=== PATIENT | male | born 1965 | race Caucasian/White ===

== ENCOUNTER 2020-11-10 05:32 | Emergency (ER) | payer OTHER, SELFPAY ==
--- NOTE | 2020-11-10 05:30 | RT.EKG_ITS ---
APPROVED REPORT Exam: Resting ECG Reason for Exam: syncope Patient Location: E HR:74 bpm ECG Measurements Heart Rate 74 AXIS OH 187 P 63 QRSd 91 QRS 67 QT 388 T 47 QTc 431 Conclusion Sinus arrhythmia...V-rate 56- 82, variation>10% Left [place] I have reviewed and interpreted ECG and agree with software generated interpretation.
[2020-11-10 05:37] VITALS: BP 109/64; PULSE 68; RESP 14; TEMP 36.3; O2SAT 98
--- NOTE | 2020-11-10 06:00 | DI.CT_ITS ---
Exam(s) CT HEAD CERVICAL SPINE WO EXAM: CT HEAD CERVICAL SPINE WO CLINICAL HISTORY: syncope,fall. TECHNIQUE: Imaging Protocol: Axial computed tomography images with coronal and sagittal reformatted images were created and reviewed COMPARISON: No exams were available for comparison FINDINGS: BRAIN: There are no skull fractures nor fluid in the visualized paranasal sinuses. There is no evidence of intracranial hemorrhage, mass effect, or shift of midline structures. There are no extra-axial fluid collections. The ventricles are not enlarged or shifted and there is no blo od within the ventricular system nor within the basal cisterns. CERVICAL SPINE: There is no evidence of fracture nor listhesis. No significant prevertebral soft tissue swelling. Some disc space narrowing at C3-4 noted. Multilevel anterior osseous lipping noted. Also some disc space narrowing at C6-7. There is no significant facet joint malalignment. No significant osseous lesions evident. IMPRESSION: No acute intracranial findings on this noninfused CT scan of the brain. No evidence of cervical spine fracture, malalignment, nor acute compromise of the cervical spinal can al. RADIATION DOSE DELIVERED: 1,616.45mGy.cm Total DLP DATA REPOSITORY: All CT scans at this facility are submitted to the National Radiology Data Registry (NRDR) Dose Index Registry (DIR) with the [employer] ([employer]). RADIATION OPTIMIZATION: All CT scans at this facility use at least one of these dose optimization te chniques: automated exposure control; mA and/or kV adjustment per patient size (includes targeted exa ms where dose is matched to clinical indication); or iterative reconstruction.
--- NOTE | 2020-11-10 06:00 | W.ED.GENAD ---
Discharge Plan Disposition Patient Disposition: HOME Condition: Good Discharge Details Clinical Impression: Syncope, Laceration of nose ED Provider: Remy Wagner Sheridan Meds and New Rx's Prescriptions: Continued atorvastatin 10 mg Tablet PO DAILY RF: 0 allopurinol 100 mg Tablet PO DAILY RF: 0 ascorbic acid (vitamin C) [Vitamin C] 500 mg Tablet PO DAILY RF: 0 niacin 100 mg Tablet PO DAILY RF: 0 omeprazole 20 mg Capsule,Delayed Release(Dr/Ec) PO BID RF: 0 aspirin 81 mg Tablet 81 mg PO DAILY RF: 0 Discharge Instructions Instructions: Syncope (ED), Facial Laceration (ED) Additional Instructions: Your EKG, laboratory studies, CT scan are all normal. Given history of passing out as well as warning this appears to be vagal in nature. You will need to have sutures out in 5 to 7 days and may return here. Should return to ED for further syncopal events, severe headache, neurologic change, chest pain, shortness of breath. 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 Sustained laceration to the bridge of the nose which has been irrigated and closed, please see procedure note. Patient with no chest pain or shortness of breath. No headache or neurological changes. Previous history of syncope. Will obtain head and cervical spine CT scan. EKG is sinus rhythm with no acute ST changes. Laboratory studies pending. Patient laboratory studies are unremarkable. Normal hematocrit, electrolytes, renal function, negative troponin. No arrhythmias on monitor here. CT scan of head and cervical spine negative. On further questioning patient always has morning of syncope and typically is able to sit down or lie down so that he does not pass out. Mother also has problems with syncope. Patient is low risk both by [place] syncope rule as well as [place]. Feel comfortable discharging the patient home at this time. Sutures will need to come out in 5 to 7 days and he may return here. Should return if any further syncopal events, severe headache, neurologic change, chest pain, shortness of breath. Lab Data Lab results reviewed: Yes I reviewed the patient's lab results. ECG Data Attestation: I personally reviewed and interpreted this ECG (s) as follows: Prior ECG tracings: not available for review Interpretation: see EKG HPI General Mode of arrival: wheelchair. Date/Time Provider Initiated Documentation: 11/10/20 05:58. Limitations to Documentation: no limitations. Information obtained by: patient, family and RN notes reviewed. HPI Narrative: Patient presents to ED status post syncope with fall and laceration to bridge of nose. Patient had gotten up to go to the bathroom. He started to feel lightheaded, weak, sweaty. Ultimately passed out but does not know what he struck his nose on. He denies having any type of chest pain or pressure. He has no shortness of breath. He has not been ill recently. Denies neurologic change, headache, neck pain. Did have nausea on and off on the ride here. Does have laceration to the bridge of his nose. They were all the way out in [place], [place] which is why it took so long to get to the hospital this morning. Related Data Home Medications Medication Instructions Recorded Confirmed allopurinol mg PO DAILY 11/10/20 ascorbic acid (vitamin C) [Vitamin mg PO DAILY 11/10/20 C] aspirin 81 mg PO DAILY 11/10/20 11/10/20 atorvastatin mg PO DAILY 11/10/20 niacin mg PO DAILY 11/10/20 omeprazole mg PO BID 11/10/20 Allergies Allergy/AdvReac Type Severity Reaction Status Date / Time Penicillins Allergy Unverified 11/10/20 05:42 General Stated Complaint: Dizzy/Sync TRISH: 3 Review of Systems Narrative: 01/29 Review of Systems completed and is negative except as stated above in HPI (Systems reviewed: Const, Eyes, ENT, Resp, CV, GI, , MSK, Skin, Neuro) PFSH Medical History GERD (gastroesophageal reflux disease) Gout Hypercholesterolemia Social History Smoking/Tobacco Use Status: Former Tobacco Use Smoking risk assessment performed?: Yes Alcohol Intake: current Alcohol Intake frequency: a few times a month Substance use type: does not use Do you feel safe at home: Yes Do you feel safe in your relationship?: Yes Exam Narrative Exam Narrative: Const: WDWN male in NAD. HEENT: NC. Flap laceration to bridge of nose otherwise normal face exam. Laceration ~ 1cm. Eyes: Normal conjunctiva and sclera. PERRL and EOMI. Neck: Supple. Trachea midline. No c-spine tenderness. Lungs: Normal respiratory effort. Lungs are clear. Cor: RRR without murmur/gallop. Good radial pulses. GI: Soft. NT/ND. No guarding or rebound. Neuro: A+O x 3. Normal speech, mentation, gait. Cranial nerves II - XII grossly intact. No gross motor or sensory deficit. Ext: No C/C/E. Skin: Warm and dry without rash. Course Vital Signs Vital signs: Vital Signs Temperature 97.3 F L 11/10/20 05:37 Pulse 68 11/10/20 05:37 Respiratory Rate 14 11/10/20 05:37 Blood Pressure 109/64 11/10/20 05:37 Pulse Oximetry 98 11/10/20 05:37 Temperature 97.3 F L 11/10/20 05:37 Temperature Source Temporal Artery Scan 11/10/20 05:37 Pulse 68 11/10/20 05:37 Respiratory Rate 14 11/10/20 05:37 Respiratory Effort Non-Labored 11/10/20 05:45 Respiratory Depth Normal 11/10/20 05:45 Respiratory Pattern Normal 11/10/20 05:45 Blood Pressure 109/64 11/10/20 05:37 Blood Pressure Position Sitting 11/10/20 05:37 Pulse Oximetry 98 11/10/20 05:37 Oxygen Delivery Method Room Air 11/10/20 05:37 Oxygen Flow Rate 0 11/10/20 05:37 Pain Level 0 11/10/20 05:37 Procedures Laceration Laceration 1: Site: face Size (cm): 1 Description: flap Depth: simple, single layer Local Anesthetic: Lidocaine 1% and with Epi Pre-repair: wound explored and irrigated extensively Skin layer closed with: nylon Size (cm): 6-0 Number of sutures: 4 Technique: simple, interrupted
[2020-11-10 06:15] LABS: Abs Immature Grans 0.11 10^3/uL (0.0-0.06); Absolute Basophil Count 0.07 10^3/uL (0.0-0.2); Absolute Eosinophil Count 0.26 10^3/uL (0.0-0.7); Absolute Lymphocyte Count 2.39 10^3/uL (1.2-3.4); Absolute Monocyte Count 0.61 10^3/uL (0.1-0.8); Absolute Neutrophil Count 6.49 10^3/uL (1.2-6.7); Basophils % 0.7; Eosinophils % 2.6; HCT 42.4 % (40.0-50.0); HGB 14.1 g/dL (13.5-17.5); Immature Grans % 1.1; Lymphocytes % 24.1; MCH 31.6 pg (27.0-33.0); MCHC 33.3 % (32.0-36.0); MCV 95.1 fL (80-95); MPV 10.2 fL (8.0-11.0); Monocytes % 6.1; Neutrophils % 65.4; Nucleated RBC 0 %; Platelet Count 274 10^3/uL (130-400); RBC 4.46 10^6/uL (4.36-5.78); RDW 13.7 % (11.8-14.1); WBC 9.93 10^3/uL (4.4-10.8)
[2020-11-10 06:27] LABS: ALT 39 U/L (16-63); AST 26 U/L (15-37); Alkaline Phosphatase 86 U/L (46-116); Anion Gap 8.9 mmol/L (3-11); BUN 16 mg/dL (7-18); Bilirubin, Total 0.5 mg/dL (0.2-1.0); CO2 28.1 mmol/L (21.0-32.0); CREATININE 0.9 mg/dL (0.70-1.30); Calcium 8.9 mg/dL (8.5-10.1); Chloride 105 mmol/L (98-107); Glucose 153 mg/dL (74-106); Magnesium 1.8 mg/dL (1.8-2.4); Potassium 4.6 mmol/L (3.5-5.1); Sodium 142 mmol/L (136-145); Total Protein 7.2 g/dL (6.4-8.2)
[2020-11-10 06:28] LABS: ETHANOL BLOOD < 3.0 mg/dL (<3); Troponin I < 0.05 ng/mL (<0.06)
--- NOTE | 2020-11-10 07:08 | DI.VRAD_ITS ---
PROCEDURE INFORMATION: Exam: CT Head Without Contrast Exam date and time: 11/10/2020 6:10 AM Age: 55 years old Clinical indication: Pain; Other: Syncope fall TECHNIQUE: Imaging protocol: Computed tomography of the head without contrast. Radiation optimization: All CT scans at this facility use at least one of these dose optimization techniques: automated exposure control; mA and/or kV adjustment per patient size (includes targeted exams where dose is matched to clinical indication); or iterative reconstruction. COMPARISON: No relevant prior studies available. FINDINGS: Brain: Normal. No hemorrhage. Unremarkable white matter. No mass effect. Cerebral ventricles: No ventriculomegaly. Paranasal sinuses: Visualized sinuses are unremarkable. No fluid levels. Mastoid air cells: Visualized mastoid air cells are well aerated. Bones/joints: Unremarkable. No acute fracture. Soft tissues: Unremarkable. IMPRESSION: No acute intracranial abnormality. PROCEDURE INFORMATION: Exam: CT Cervical Spine Without Contrast Exam date and time: 11/10/2020 6:10 AM Age: 55 years old Clinical indication: Pain; Other: Syncope fall TECHNIQUE: Imaging protocol: Computed tomography images of the cervical spine without contrast. COMPARISON: No relevant prior studies available. FINDINGS: Vertebrae: No acute fracture. Normal alignment. C2-C3: No significant disc protrusion. No severe spinal canal stenosis. No significant neural foraminal narrowing. C3-C4: No significant disc protrusion. No severe spinal canal stenosis. No significant neural foraminal narrowing. C4-C5: No significant disc protrusion. No severe spinal canal stenosis. No significant neural foraminal narrowing. C5-C6: No significant disc protrusion. No severe spinal canal stenosis. No significant neural foraminal narrowing. C6-C7: No significant disc protrusion. No severe spinal canal stenosis. No significant neural foraminal narrowing. C7-T1: No significant disc protrusion. No severe spinal canal stenosis. No significant neural foraminal narrowing. Soft tissues: Unremarkable. Lungs: Lung apices are normal. IMPRESSION: No acute findings. Dictated and Authenticated by: Ross Conner MD. Ordering:RADHA Alberto MD
[2020-11-10 07:17] VITALS: BP 134/72; PULSE 77; RESP 20; TEMP 36.1; O2SAT 97
== END 2020-11-10 07:28 | disposition home or self-care (01) ==
LOC: ER 07:24
PROVIDERS: Emergency Provider Emergency Medicine
DX: R55 Syncope and collapse (principal); S01.21XA Laceration without foreign body of nose, initial encounter; W18.39XA Other fall on same level, initial encounter
CPT/HCPCS: 12011; 36415; 80053; 93005; 99284; 70450; 72125; 80320; 81003; 83735; 84484; 85025; 93010

== ENCOUNTER 2020-11-17 09:39 | Emergency (ER) | payer OTHER, SELFPAY ==
[2020-11-17 09:47] VITALS: BP 128/76; PULSE 77; RESP 15; TEMP 36.8; O2SAT 96
--- NOTE | 2020-11-17 09:56 | ED.GENADUL_ITS ---
Discharge Plan Disposition Patient Disposition: HOME Condition: Good Discharge Details Clinical Impression: Encounter for removal of sutures [facility] Provider: Sherri Menezes Home Meds and New Rx's Prescriptions: Continued atorvastatin 10 mg Tablet PO DAILY RF: 0 allopurinol 100 mg Tablet PO DAILY RF: 0 ascorbic acid (vitamin C) [Vitamin C] 500 mg Tablet PO DAILY RF: 0 niacin 100 mg Tablet PO DAILY RF: 0 omeprazole 20 mg Capsule,Delayed Release(Dr/Ec) PO BID RF: 0 aspirin 81 mg Tablet 81 mg PO DAILY RF: 0 Discharge Instructions Additional Instructions: Keep clean and dry Wear sunscreen for the next 6 months to prevent scab formation With spreading redness, fever, worsening pain please return to the emergency room Discharge Data Discharge Date/Time-TO BE ENTERED AT DEPARTURE: 11/17/20 10:15 Medical Decision Making 4 sutures removed by me, no it was challenging to remove the sutures so I did have to clean off a portion of the scab Return precautions discussed and patient expressed understanding Medical Records Medical records reviewed: Yes I reviewed the patient's medical records. HPI General Mode of arrival: ambulatory . Date/Time Provider Initiated Documentation: 11/17/20 09:42 . Limitations to Documentation: no limitations . Information obtained by: patient . HPI Narrative: This patient presents 5 days statuspost Episode of syncope with suture placement. Patient has [address] He is otherwise feeling improved. He denies additional episodes of syncope. He is here to have his sutures removed Related Data Home Medications Medication Instructions Recorded Confirmed allopurinol mg PO DAILY 11/10/20 ascorbic acid (vitamin C) [Vitamin mg PO DAILY 11/10/20 C] aspirin 81 mg PO DAILY 11/10/20 11/10/20 atorvastatin mg PO DAILY 11/10/20 niacin mg PO DAILY 11/10/20 omeprazole mg PO BID 11/10/20 Allergies Allergy/AdvReac Type Severity Reaction Status Date / Time Penicillins Allergy Unverified 11/10/20 05:42 General Stated Complaint: SutureRem TRISH: 5 Review of Systems Narrative: Review of systems obtained x1 and negative aside from where indicated in HPI PFSH Medical History GERD (gastroesophageal reflux disease) Gout Hypercholesterolemia Social History Smoking/Tobacco Use Status: Former Tobacco Use Smoking risk assessment performed?: Yes Alcohol Intake: current Alcohol Intake frequency: a few times a month Substance use type: does not use Do you feel safe at home: Yes Do you feel safe in your relationship?: Yes Exam HENMT Other: Well-healed and approximated laceration site, and scab formation over sutures, no dehiscence or evidence of infection Course Vital Signs Vital signs: Vital Signs Temperature 36.8 C 11/17/20 09:47 Pulse 77 11/17/20 09:47 Respiratory Rate 15 11/17/20 09:47 Blood Pressure 128/76 11/17/20 09:47 Pulse Oximetry 96 11/17/20 09:47 Temperature 36.8 C 11/17/20 09:47 Temperature Source Temporal Artery Scan 11/17/20 09:47 Pulse 77 11/17/20 09:47 Respiratory Rate 15 11/17/20 09:47 Respiratory Effort Non-Labored 11/17/20 09:50 Blood Pressure 128/76 11/17/20 09:47 Blood Pressure Position Sitting 11/17/20 09:47 Pulse Oximetry 96 11/17/20 09:47 Oxygen Delivery Method Room Air 11/17/20 09:47 Oxygen Flow Rate 0 11/17/20 09:47 Pain Level 0 11/17/20 09:47
== END 2020-11-17 10:15 | disposition home or self-care (01) ==
PROVIDERS: Emergency Provider Physician Assistant
DX: S01.21XD Laceration without foreign body of nose, subsequent encounter (principal); X58.XXXD Exposure to other specified factors, subsequent encounter; Z48.02 Encounter for removal of sutures